=== PATIENT | female | born 1955 | race Caucasian/White ===

== ENCOUNTER 2019-11-04 09:39 | Outpatient (CLI) | payer MEDICARE, SELFPAY ==
--- NOTE | ~2019-11-04 | MR_ITS ---
EXAMINATION: MR lumbar spine wo con EXAM DATE: 11/04/2019 10:55 INDICATION: Surgery on Tuesday. Low back, left buttock pain. TECHNIQUE: Multi-sequential, multiplanar MR images of the lumbar spine were obtained without contrast . Sagittal T1, T2, T2 fat saturation images. Axial T2 weighted images. There is no prior study for comparison. FINDINGS: Evidence of prior posterior surgical change posterior to the T11, T12 levels (laminotomies? ). There is posterior fusion at L2-3. There is moderate chronic compression fracture of T11, moderate to severe at T12. There is moderate loss of the L1-2, moderate to severe loss of the L2-3 disc heigh ts. Mild to moderate disc disease L3-4 and L4-5. There is 2 mm retrolisthesis L4 on L5. There is 7 mm T1 and T2 hypointense region in the L5 vertebral body, could be an atypical hemangioma. There are ot her small signal abnormalities consistent with typical hemangiomas. Level by level evaluation: T11-12: There is a mild diffuse disc bulge. Facet arthropathy: Mild to moderate. Neural foraminal stenosis: No stenosis. Central canal stenosis: No stenosis. T12-L1: There is a mild diffuse disc bulge. Facet arthropathy: Mild. Neural foraminal stenosis: No stenosis. Central canal stenosis: No stenosis. L1-L2: There is a mild diffuse disc bulge. Facet arthropathy: Mild. Neural foraminal stenosis: No stenosis. Central canal stenosis: No stenosis. L2-L3: There is a mild to moderate diffuse disc bulge. Facet arthropathy: Mild to moderate. Neural foraminal stenosis: Mild bilateral. Central canal stenosis: Mild. L3-L4: There is a moderate diffuse disc bulge. Facet arthropathy: Moderate . Ligamentum flavum enlargement. Neural foraminal stenosis: Moderate right, mild to moderate left. Central canal stenosis: Mild to moderate. L4-L5: There is a moderate diffuse disc bulge. Facet arthropathy: Mild to moderate . Ligamentum flavum enlargement. Neural foraminal stenosis: Moderate to severe left, mild to moderate right. Central canal stenosis: Mild to moderate. L5-S1: There is a mild diffuse disc bulge. Facet arthropathy: Mild. Neural foraminal stenosis: No stenosis. Central canal stenosis: No stenosis. IMPRESSION: 1. Surgical changes with posterior fusion hardware at L2-3. 2. Multilevel lumbar spondylosis as detailed above. 3. Hemangiomas. Small L5 lesion could be atypical hemangioma. 4. Osseous metastatic disease not excludable. Clinical correlation, could consider bone scan. Reviewed, dictated and finalized at location B. SETTER IMPRESSION: 1. Surgical changes with posterior fusion hardware at L2-3. 2. Multilevel lumbar spondylosis as detailed above. 3. Hemangiomas. Small L5 lesion could be atypical hemangioma. 4. Osseous metastatic disease not excludable. Clinical correlation, could cons ider bone scan.
--- NOTE | ~2019-11-04 | MR_ITS ---
EXAMINATION: MR thoracic spine wo con EXAM DATE: 11/04/2019 12:45 INDICATION: Previous surgery. Left sided back, low back pain. TECHNIQUE: Multi-sequential, multiplanar MR images of the thoracic spine were obtained without contra st. Sagittal T1, T2, T2 fat saturation images. Axial T2 weighted images. There is no prior study f or comparison. FINDINGS: Posterior surgical changes from the mid thoracic spine to the upper lumbar spine, spinous processes a ppear to have been resected, correlate with surgical history. Mild to moderate central compression of T10, mild to moderate anterior compression of T11, moderate to severe compression fracture of T12. T hese are without bone marrow edema, are chronic, and cause lower thoracic kyphosis. There are several typical hemangiomas. There is a vague mildly low signal intensity region in the T7 vertebral body measuring about 1 cm, could be an atypical hemangioma. Difficult to exclude underlying early osteoblastic disease. There is minimal thoracic disc disease. Mild diffuse thoracic facet arthropathy. No thoracic central canal or significant neural foraminal stenosis. The spinal cord signal intensity and intrinsic morpho logy is normal. Paraspinal soft tissue is unremarkable. There is small sliding gastroesophageal hiata l hernia. IMPRESSION: 1. Vague low signal in T7, could be atypical hemangioma. Difficult to exclude osteoblastic disease. Consider bone scan. 2. Chronic lower thoracic compression fractures. 3. Mild thoracic spondylosis without stenosis. Reviewed, dictated and finalized at location B. NG CONSULTANT
== END 2019-11-04 09:40 | disposition home or self-care (01) ==
PROVIDERS: Visit Provider Nurse Practitioner Family
DX: M54.5 Low back pain (principal); M54.6 Pain in thoracic spine; Z98.1 Arthrodesis status; M47.816 Spondylosis without myelopathy or radiculopathy, lumbar region; D18.09 Hemangioma of other sites; R93.7 Abnormal findings on diagnostic imaging of other parts of musculoskeletal system; M47.814 Spondylosis without myelopathy or radiculopathy, thoracic region; M48.54XA Collapsed vertebra, not elsewhere classified, thoracic region, initial encounter for fracture
CPT/HCPCS: 72146; 72148

== ENCOUNTER 2019-11-06 12:13 | Outpatient (CLI) | payer MEDICARE, SELFPAY ==
--- NOTE | ~2019-11-06 | NM_ITS ---
EXAMINATION: NM bone scan whole body DATE: 11/06/2019 15:17 INDICATION: L5 bone lesion. TECHNIQUE: 25.0 mCi Tc-99m HDP was administered intravenously. Delayed whole-body scintigrams were o btained. COMPARISON: Lumbar spine MRI 11/04/2019 FINDINGS: There is joint-centered increased activity at the sternoclavicular joints, acromioclavicula r joints, right knee, and feet without radiographic comparison, likely osteoarthritis. There is incre ased activity at the facet joints at multiple levels in the thoracic and lumbar spine correlating wit h osteoarthritis by MRI. IMPRESSION: 1. No abnormal activity in L5 to correlate with the MRI abnormality, likely benign. Reviewed, dictated and finalized at location A. IOPULMONARY PHYSICAL THERAPIST IMPRESSION: 1. No abnormal activity in L5 to correlate with the MRI abnormality, likely yoshi ign.
== END 2019-11-06 12:14 | disposition home or self-care (01) ==
PROVIDERS: Visit Provider Nurse Practitioner Family
DX: S34.119A Complete lesion of unspecified level of lumbar spinal cord, initial encounter (principal)
CPT/HCPCS: 78306; A9561

== ENCOUNTER → 2020-06-09 11:01 | Outpatient (CLI) | payer MEDICARE, SELFPAY ==
--- NOTE | ~2020-06-09 | MM_ITS ---
EXAMINATION: MM screening jacob BI w vonda HISTORY: Screening mammogram, family history of breast cancer in her sister. TECHNIQUE: Craniocaudal and mediolateral oblique 3-D tomosynthesis images were obtained and synthetic 2-D images were generated. CAD analysis was submitted and interpreted. COMPARISON: No prior mammogram is available for comparison at this institution. BREAST PARENCHYMAL COMPOSITION: The breasts are almost entirely fatty. FINDINGS: RIGHT BREAST: There is asymmetry in the middle third of the outer breast on the craniocaudal view 10 cm from the nipple. LEFT BREAST: There is no evidence of suspicious mass, calcification, or architectural distortion to s uggest malignancy. IMPRESSION: 1. Right breast asymmetry on the craniocaudal view which may represent the patient's baseline however no comparison is currently available. 2. Comparison with prior mammograms is necessary. BI-RADS Category 0: Incomplete: Needs comparison with prior mammograms. Reviewed, dictated and finalized at location A. IMPRESSION: 1. Right breast asymmetry on the craniocaudal view which may represent the yanique ent's baseline however no comparison is currently available. 2. Comparison with prior mammograms is necessary. BI-RADS Category 0: Incomplete: Needs comparison with prior mammograms.
== END ==
DX: Z12.31 Encounter for screening mammogram for malignant neoplasm of breast (principal); R92.8 Other abnormal and inconclusive findings on diagnostic imaging of breast
CPT/HCPCS: 77063; 77067

== ENCOUNTER 2024-06-13 12:18 | Emergency (ER) | payer MEDICARE, SELFPAY ==
--- NOTE | ~2024-06-13 | XR_ITS ---
Left ankle Technique: AP, oblique, and lateral views were obtained. Clinical History: Pain Findings: No acute fracture or dislocation is seen. Osseous alignment is anatomic. Ankle mortise and other visualized joint spaces are preserved. Soft tissues are otherwise unremarkable. Impression: Unremarkable left ankle. Reviewed, dictated and finalized at location . Impression: Unremarkable left ankle.
[2024-06-13 12:30] VITALS: BP 118/90; PULSE 71; RESP 18; TEMP 36.4; O2SAT 99
--- NOTE | 2024-06-13 12:37 | ED.EXTPRO ---
HPI - Extremity Problem General Chief complaint: Extremity Problem,Nontraumatic Stated complaint: ankle injury Time Seen by Provider: 06/13/24 12:37 Source: patient, RN notes reviewed and old records reviewed Mode of arrival: ambulatory Limitations: no limitations History of Present Illness HPI Narrative: 69-year-old female to [facility] with left ankle pain that is worse with ambulation. Patient reports that this morning while preparing to leave her home she rolled her left ankle inward. Patient denies falling during incident. Patient reports the pain is in posterior heel, radiating through medial malleolus and over medial dorsal foot with weight-bearing/ ambulating. Patient denies numbness, tingling, weakness, prior injury or surgery, pertinent medical history. Patient resting in exam room in no apparent discomfort. Patient states pain 2/10 while sitting and 9/10 with ambulation. Patient in no acute distress. Related Data Home Medications Medication Instructions Recorded Confirmed ascorbic acid (vitamin C) 1,000 mg 1 g PO DAILY 01/07/22 06/13/24 tablet cholecalciferol (vitamin D3) 50 50 mcg PO DAILY 01/07/22 06/13/24 mcg (2,000 unit) capsule epinephrine 0.3 mg/0.3 mL 0.3 mg IM ONCE 01/07/22 06/13/24 injection, auto-injector (EpiPen) famotidine 40 mg tablet 40 mg PO DAILY 01/07/22 06/13/24 fexofenadine 180 mg tablet 180 mg PO DAILY 01/07/22 06/13/24 fluticasone fur. 100 mcg-umeclid 1 inh inhalation DAILY 01/07/22 06/13/24 62.5 mcg-vilant 25 mcg inhalat.powder (Trelegy Ellipta) guaifenesin 600 mg tablet, 600 mg PO Q12H 01/07/22 06/13/24 extended release 12 hr (Mucinex) levothyroxine 175 mcg capsule 150 mcg PO DAILY 01/07/22 06/13/24 meloxicam 15 mg tablet 15 mg PO DAILY 01/07/22 06/13/24 methocarbamol 750 mg tablet 750 mg PO QHS 01/07/22 06/13/24 montelukast 10 mg tablet 10 mg PO DAILY 01/07/22 06/13/24 naloxone 4 mg/actuation nasal 4 mg intranasal Q3M 01/07/22 06/13/24 spray (Narcan) omeprazole 40 mg capsule,delayed 40 mg PO DAILY 01/07/22 06/13/24 release oxybutynin chloride 5 mg tablet 5 mg PO DAILY 01/07/22 06/13/24 polyethylene glycol 3350 17 17 g PO DAILY 01/07/22 06/13/24 gram/dose oral powder (Miralax) trazodone 50 mg tablet 50 mg PO QHS 01/07/22 06/13/24 zinc gluconate 50 mg tablet 50 mg PO DAILY 01/07/22 06/13/24 benralizumab 30 mg/mL subcutaneous 30 mg subcut .[id number] 10/14/22 06/13/24 auto-injector (Fasenra Pen) triamcinolone acetonide 0.025 % 1 applic topical DAILY 04/12/24 06/13/24 topical cream Medtronic Pain Pump #8637-20 See Rx Instructions .Route .COMPLEX 06/13/24 06/13/24 Prevagen Professional 20 mg DAILY 06/13/24 06/13/24 azelastine 137 mcg (0.1 %) nasal 1 spray intranasal DIRECTED 06/13/24 06/13/24 spray diphenhydramine HCl 50 mg capsule 200 mg PO HS 06/13/24 06/13/24 Allergies Allergy/AdvReac Type Severity Reaction Status Date / Time adhesive tape Allergy Hives Verified 06/13/24 12:44 Review of Systems Review of Systems: All systems reviewed & are unremarkable except as noted in HPI and below Constitutional: Constitutional: Reports no additional constitutional complaints Eyes: Eyes: Reports no additional eye complaints ENT: Reports system reviewed and no additional complaints, except as documented Cardiovascular: Cardiovascular: Reports no additional cardiovascular complaints, Denies chest pain and Denies dyspnea Respiratory: Respiratory: Reports no additional respiratory complaints, Denies cough and Denies dyspnea Musculoskeletal: Musculoskeletal: Reports as per HPI, Reports abnormal gait ( left ankle pain with ambulation) and Reports arthralgias ( left ankle with weight-bearing) Neurologic: Reports system reviewed and no additional complaints, except as documented Psychiatric: Psychiatric: Reports no additional psychiatric complaints PMFSH Past Medical History Medical History Benign tumo
== END 2024-06-13 13:32 | disposition home or self-care (01) ==
PROVIDERS: Emergency Provider Nurse Practitioner Family
DX: S93.402A Sprain of unspecified ligament of left ankle, initial encounter (principal); X50.9XXA Other and unspecified overexertion or strenuous movements or postures, initial encounter; K21.9 Gastro-esophageal reflux disease without esophagitis; J82.83 Eosinophilic asthma
CPT/HCPCS: 73610; 99213; G0463

== ENCOUNTER 2024-07-27 12:21 | Emergency (ER) | payer MEDICARE, SELFPAY ==
--- NOTE | 2024-07-27 12:25 | ED.LOWEXIN ---
HPI - Extremity Injury (Lower) General Chief Complaint: Extremity Injury, Lower Stated Complaint: LT Ankle injury Time Seen by Provider: 07/27/24 12:44 Source: patient and RN notes reviewed Mode of arrival: ambulatory Limitations: no limitations History of Present Illness HPI Narrative: 69-year-old female presents with concern for left ankle swelling. She injured the ankle about 5 weeks ago and more a ?boot? for about a week and a half and reports her symptoms seemed to have resolved. She has been having activity as normal. She reports last night her ankle felt itchy and she woke up this morning with her ankle swollen and feeling full. She reports that the ankle is not painful. She denies any re-injury or trauma. She denies warmth, itching, open skin, rash. She denies fever, aches, chills, sweats. MD complaint: other (ankle swelling) Related Data Home Medications Medication Instructions Recorded Confirmed ascorbic acid (vitamin C) 1,000 mg 1 g PO DAILY 01/07/22 07/27/24 tablet cholecalciferol (vitamin D3) 50 50 mcg PO DAILY 01/07/22 07/27/24 mcg (2,000 unit) capsule epinephrine 0.3 mg/0.3 mL 0.3 mg IM ONCE 01/07/22 07/27/24 injection, auto-injector (EpiPen) fexofenadine 180 mg tablet 180 mg PO DAILY 01/07/22 07/27/24 fluticasone fur. 100 mcg-umeclid 1 inh inhalation DAILY 01/07/22 07/27/24 62.5 mcg-vilant 25 mcg inhalat.powder (Trelegy Ellipta) levothyroxine 175 mcg capsule 150 mcg PO DAILY 01/07/22 07/27/24 meloxicam 15 mg tablet 15 mg PO DAILY 01/07/22 07/27/24 methocarbamol 750 mg tablet 750 mg PO QHS 01/07/22 07/27/24 montelukast 10 mg tablet 10 mg PO DAILY 01/07/22 07/27/24 omeprazole 40 mg capsule,delayed 40 mg PO DAILY 01/07/22 07/27/24 release oxybutynin chloride 5 mg tablet 5 mg PO DAILY 01/07/22 07/27/24 trazodone 50 mg tablet 50 mg PO QHS 01/07/22 07/27/24 zinc gluconate 50 mg tablet 50 mg PO DAILY 01/07/22 07/27/24 benralizumab 30 mg/mL subcutaneous 30 mg subcut .[id number] 10/14/22 07/27/24 auto-injector (Fasenra Pen) Medtronic Pain Pump #8637-20 See Rx Instructions .Route .COMPLEX 06/13/24 07/27/24 azelastine 137 mcg (0.1 %) nasal 1 spray intranasal DIRECTED 06/13/24 07/27/24 spray fluticasone fur. 100 mcg-umeclid 1 inh inhalation DAILY 07/27/24 07/27/24 62.5 mcg-vilant 25 mcg inhalat.powder (Trelegy Ellipta) Allergies Allergy/AdvReac Type Severity Reaction Status Date / Time adhesive tape Allergy Mild Hives Verified 07/27/24 12:25 Review of Systems Review of Systems: CONSTITUTIONAL: Denies malaise, chills, sweats, or fever. SKIN: Denies rash or itching, open skin, laceration, abrasion, redness, warmth MUSCULOSKELETAL: Reports left ankle swelling. Denies pain NEUROLOGIC: Denies numbness, weakness All systems reviewed & are unremarkable except as noted in HPI and below PMFSH Past Medical History Medical History Benign tumor of breast Eosinophilic asthma GERD (gastroesophageal reflux disease) Obstructive sleep apnea Surgical History Surgical History History of appendectomy (~1984) History of intraocular lens implant (~2010) History of spinal fusion (~2012) Social History Social History Smoking status: Never smoker Comments At time of signature, agree with nursing past medical, surgical, social and family history. There is no relevant family history pertinent to the presenting complaint Exam Narrative: GENERAL: Well-appearing, well-nourished, and in no acute distress. HEAD: Normocephalic, atraumatic. EYES: PERRLA, conjunctivae clear NECK: Supple. CHEST: Speaks in full sentences. No respiratory distress. HEART: Regular rate and rhythm. Normal and equal peripheral pulses. EXTREMITIES: Left ankle, foot, digits have grossly normal strength and sensation, grossly normal range of motion. Moderate circumferential ankle edema, worse the medial malleolus. No erythema, warmth, ecchymosis. Normal sensation with sensitivity to light touch and pain. No point tenderness. No open wounds, no skin tenting, no devitalized tissue or atrophy, no trophic changes, no obvious deformity, alignment normal, nearby joints and structures intact. Distal pulses palpable and equal bilaterally, skin warm, dry, pink. Capillary refill less than 3 seconds. SKIN: Warm, dry, no rash. NEURO: Alert and oriented x3. PSYCH: Normal mood and affect Course Course Emergency Course: Patient was given orthopedic referral due to 1-month-old injury that is Re swelling without new injury Patient is aware of diagnosis, understands and agrees to treatment plan. Anticipatory guidance given. Patient agrees to follow-up as directed and is aware of reasons to seek care at the emergency department. Portions of this record may have been created with voice recognition software Level of Care: Express Care Visit Vital Signs Vital signs: Reviewed. MDM - Extremity Injury (Lower) MDM Narrative Medical decision making narrative: Patients injury and pain is consistent with musculoskeletal etiology. No signs of neurological or vascular compromise on exam. Compartments and tissues are soft without signs of compartment syndrome. Pain is felt appropriate for further evaluation on an outpatient basis. Critical Care Time Critical Care Time Critical Care Time: No Discharge Plan Discharge Clinical Impression: Ankle injury Patient Disposition: Home, Self-Care Condition: Stable Instructions: Ankle Sprain (ED) Additional Instructions: Avoid activities that cause pain until the pain subsides. Ice to the area 20-30 minutes 4-6 times a day Elevate above heart Elastic wrap as directed for comfort for the next 5-7 days Tylenol for pain Ibuprofen regularly for the next 2-3 days for the inflammation Follow up with Orthopedics for further evaluation If the condition worsens with numbness, tingling, decrease sensation with weakness seek treatment in the emergency room immediately. Prescriptions: No Action azelastine 137 mcg (0.1 %) spray,non-aerosol 1 spray INTRANASAL DIRECTED [employer]tr[employer] Pain Pump #8637-20 See Rx Instructions .ROUTE .COMPLEX Rx Instructions: morphine,clonidine,bupivicaine Trelegy Ellipta 100-62.5-25 mcg blister with device 1 inh INHALATION DAILY meloxicam 15 mg tablet 15 mg PO DAILY omeprazole 40 mg capsule,delayed release(DR/EC) 40 mg PO DAILY levothyroxine 175 mcg capsule 150 mcg PO DAILY methocarbamol 750 mg tablet 750 mg PO QHS trazodone 50 mg tablet 50 mg PO QHS montelukast 10 mg tablet 10 mg PO DAILY oxybutynin chloride 5 mg tablet 5 mg PO DAILY Trelegy Ellipta 100-62.5-25 mcg blister with device 1 inh inhalation DAILY epinephrine [EpiPen] 0.3 mg/0.3 mL auto-injector 0.3 mg IM ONCE Rx Instructions: as a single dose; may repeat once cholecalciferol (vitamin D3) 50 mcg (2,000 unit) capsule 50 mcg PO DAILY ascorbic acid (vitamin C) 1,000 mg tablet 1 g PO DAILY zinc gluconate 50 mg tablet 50 mg PO DAILY fexofenadine 180 mg tablet 180 mg PO DAILY Fasenra Pen 30 mg/mL auto-injector 30 mg subcut .[id number] Follow-up/Referrals: Noe Herzog MD [Physician] - (Ankle sprain 1 month ago, new swelling without reinjury) UNKNOWN,DOCTOR [Non-Staff] - Time of Disposition: 12:58
[2024-07-27 12:35] VITALS: BP 119/83; PULSE 76; RESP 18; TEMP 36.7; O2SAT 98
== END 2024-07-27 13:01 | disposition home or self-care (01) ==
PROVIDERS: Emergency Provider Nurse Practitioner
DX: S99.912A Unspecified injury of left ankle, initial encounter (principal); X58.XXXA Exposure to other specified factors, initial encounter; J82.83 Eosinophilic asthma; K21.9 Gastro-esophageal reflux disease without esophagitis
CPT/HCPCS: 99212; G0463